=== PATIENT | male | born 1940 | race Two or more races ===

== ENCOUNTER → 2020-08-02 | Outpatient (CLI) | payer MEDICARE ==
[2020-08-02 23:35] LABS: HGB 17.3 g/dL (13.0-17.0); MCH 29.8 pg (27.0-32.0); MCV 92.9 fL (80.0-97.0); Mean Platelet Volume 12.3 fL (9.5-12.2); Platelet Count 240 X 10*3/uL (140-440); RBC 5.81 X 10*6/uL (4.40-5.60); RDW 13.6 % (11.5-14.5); WBC 10.88 X 10*3/uL (4.50-10.00)
== END | disposition home or self-care (01) ==
LOC: LABWHC1 10:30
PROVIDERS: ATTEND Orthopaedic Surgery
DX: Z01.812 Encounter for preprocedural laboratory examination (principal); M17.11 Unilateral primary osteoarthritis, right knee; M25.561 Pain in right knee; I10 Essential (primary) hypertension
CPT/HCPCS: 36415; 85027; 87070